=== PATIENT | male | born 1950 | race Caucasian/White ===

== ENCOUNTER 2020-12-18 22:02 | Day surgery (SDCO) | payer MEDICARE ==
[~2020-12-18] VITALS: Ht 170.2 cm; Wt 106.2 kg
[2020-12-18 22:58] LABS: BASOPHIL 0.6 % (0-2); EOSINOPHIL 1.6 % (0-7); HCT 43.9 % (42.0-52.0); HGB 14.3 g/dl (13.2-18.0); LYMPHOCYTE 8.6 % (15-48); MCH 30.8 pg (25.0-31.0); MCHC 32.6 g/dL (32.0-36.0); MCV 94.4 fL (78.0-100.0); MONOCYTE 7.1 % (0-12); MPV 10.7 fL (6.0-9.5); NEUTROPHIL 81.4 % (41-80); NRBC 0; PLT 176 K/uL (150-400); RBC 4.65 M/uL (4.70-6.00); RDW 14.1 % (11.5-14.0); WBC 12.1 K/uL (4.0-10.5)
[2020-12-18 23:09] LABS: ALBUMIN 3.4 g/dL (3.4-5.0); BILIRUBIN - TOTAL 0.6 mg/dL (0.2-1.0); BUN/CREAT RATIO (CALC) 12.7 RATIO; CREATININE 1.26 mg/dL (0.67-1.17); GLOBULIN (CALCULATION) 4.6 g/dL
[2020-12-19] MEDS ORDERED: PRINIVIL20 MG PO (02:54)
[2020-12-19] MEDS ORDERED: COREG12.5 MG PO (02:54)
[2020-12-19 06:49] LABS: HCT 44.6 % (42.0-52.0); HGB 14.7 g/dl (13.2-18.0); MCH 31.3 pg (25.0-31.0); MCV 95.1 fL (78.0-100.0); MPV 10.6 fL (6.0-9.5); RBC 4.69 M/uL (4.70-6.00); RDW 13.9 % (11.5-14.0); WBC 9.5 K/uL (4.0-10.5)
[2020-12-19 07:13] LABS: CREATININE 1.25 mg/dL (0.67-1.17); MAGNESIUM 1.7 mg/dL (1.8-2.4); POTASSIUM 4.9 mmol/L (3.5-5.1)
--- NOTE | 2020-12-19 18:36 | NUR ---
MD NOTIFIED OF LUNG SOUNDS WHEEZING/RHONCHI AND PLACED ON 2L O2 PER NC IV SOLUMEDROL STARTED
[2020-12-20 04:09] LABS: BASOPHIL 0.2 % (0-2); EOSINOPHIL 0 % (0-7); HCT 41.4 % (42.0-52.0); HGB 13.5 g/dl (13.2-18.0); LYMPHOCYTE 3.7 % (15-48); MCH 30.9 pg (25.0-31.0); MCHC 32.6 g/dL (32.0-36.0); MCV 94.7 fL (78.0-100.0); MPV 10.7 fL (6.0-9.5); NEUTROPHIL 92.6 % (41-80); NRBC 0; PLT 172 K/uL (150-400); RBC 4.37 M/uL (4.70-6.00); RDW 14.1 % (11.5-14.0)
[2020-12-20 04:10] LABS: WBC 25.8 K/uL (4.0-10.5)
[2020-12-20 04:34] LABS: ALBUMIN 2.9 g/dL (3.4-5.0); BILIRUBIN - TOTAL 0.2 mg/dL (0.2-1.0); CREATININE 1.4 mg/dL (0.67-1.17); GLOBULIN (CALCULATION) 3.9 g/dL; POTASSIUM 4.4 mmol/L (3.5-5.1); TOTAL PROTEIN 6.8 g/dL (6.4-8.2)
[2020-12-20] MEDS ORDERED: ANTIVERT25 MG PO (10:14)
[2020-12-20] MEDS ORDERED: ALBUTEROL0.5 ML/AMP INH (10:14)
[2020-12-20] MEDS ORDERED: PREDNISONE 20MG20 MG PO (10:14)
== END 2020-12-20 10:47 | disposition home or self-care (01) ==
LOC: FER 22:02 → FMS 12-19 01:47
PROVIDERS: Emergency Medicine; Nurse Practitioner; ADMIT Internal Medicine
DX: J44.1 Chronic obstructive pulmonary disease with (acute) exacerbation (principal); H81.399 Other peripheral vertigo, unspecified ear; I65.23 Occlusion and stenosis of bilateral carotid arteries; I10 Essential (primary) hypertension; I25.10 Atherosclerotic heart disease of native coronary artery without angina pectoris; I71.4 Abdominal aortic aneurysm, without rupture; I25.2 Old myocardial infarction; E78.5 Hyperlipidemia, unspecified; F17.210 Nicotine dependence, cigarettes, uncomplicated; Z95.5 Presence of coronary angioplasty implant and graft; Z79.899 Other long term (current) drug therapy; Z20.822 Contact with and (suspected) exposure to COVID-19
CPT/HCPCS: 36415; 70450; 71045; 80048; 80053; 83605; 83735; 84145; 84484; 85025; 93005; 93880; 94640; 94668; 94760; 97161; 97165; 97530; G0378; J1650; J2550; J2920; J2930; J7040; J7512; U0002